=== PATIENT | female | born 1950 | race Caucasian/White ===

== ENCOUNTER 2021-08-03 09:00 | Outpatient (RCR) | payer MEDICARE | END 2021-08-04 | LOC: PT 09:00 | PROVIDERS: ATTEND Specialist | DX: M19.012 Primary osteoarthritis, left shoulder (principal) ==

== ENCOUNTER 2021-08-29 09:00 | Outpatient (RCR) | payer MEDICARE | END 2021-09-04 | LOC: PT 09:00 | PROVIDERS: ATTEND Specialist | DX: M19.012 Primary osteoarthritis, left shoulder (principal) | CPT/HCPCS: 97139 ==

== ENCOUNTER 2021-09-05 08:27 | Outpatient (RCR) | payer MEDICARE, OTHER | END 2021-10-04 | LOC: PT 08:27 | PROVIDERS: ATTEND Specialist | DX: M19.012 Primary osteoarthritis, left shoulder (principal) | CPT/HCPCS: 97139 ==